=== PATIENT | female | born 1940 | race Caucasian/White ===

== ENCOUNTER 2020-03-23 16:08 | Observation (INO) | payer MEDICARE ==
[~2020-03-23] VITALS: Ht 172.7 cm; Wt 62.7 kg
[~2020-03-23 16:08] MED LIST: ASPIRIN325 MG PO; FISH OIL 500MG500 MG PO; KLOR-CON M2020 ME1 PO; LEVOTHYROXIN0.125 MG PO; METFORMIN500 MG PO; PRILOSEC40 M1 PO; TEKTURNA150 MG PO; TRAMADOL HCL50 MG PO; TRIAMTERENE/HCT1 CAP PO
[2020-03-23 16:11] VITALS: BP 119/41
[2020-03-23 17:58] LABS: BASO % 0.1 % (0.0-1.0); EOS # 0.1 10*3/uL (0.0-0.4); EOS % 0.6 % (1.0-4.0); HEMATOCRIT 36.5 % (37.0-47.0); LYMPH # 1.1 10*3/uL (1.3-4.4); LYMPH % 8.9 % (27.0-41.0); MEAN CELL VOLUME 91.7 fl (81.0-99.0); MEAN CORPUSCULAR HGB 30.4 pg (27.0-31.0); MEAN CORPUSCULAR HGB CONC 33.2 g/dl (33.0-37.0); MEAN PLATELET VOLUME 10.8 fl (9.6-12.3); MONO # 0.9 10*3/uL (0.1-1.0); MONO % 7.6 % (3.0-9.0); NEUT # 9.9 10*3/uL (2.3-7.9); NEUT % 81.8 % (47.0-73.0); PLATELET COUNT AUTOMATED 227 10*3/uL (130-400); RED BLOOD COUNT 3.98 10*6/uL (4.10-5.10); RED CELL DISTRI WIDTH 14.6 % (0-14.5); WHITE BLOOD COUNT 12.1 10*3/uL (4.8-10.8)
[2020-03-23 18:14] LABS: ALBUMIN 2.8 gm/dl (3.1-4.5); ALKALINE PHOSPHATASE 67 U/L (45-117); BUN 60 mg/dl (7-24); CHLORIDE 104 mmol/L (98-107); CREATININE 2.12 mg/dL (0.55-1.02); LIPASE 80 U/L (73-393); POTASSIUM 4.5 mmol/L (3.5-5.1); SGOT/AST 9 IU/L (3-35); SGPT/ALT 14 U/L (12-78); SODIUM 133 mmol/L (136-145); TOTAL PROTEIN 6.7 gm/dL (6.4-8.2)
[2020-03-23 18:20] LABS: TROPONIN I < 0.015 ng/ml (<0.045)
[2020-03-23 19:27] LABS: BACTERIA 1+; BILIRUBIN 1+ (NEGATIVE); BLOOD 2+ (NEGATIVE); CLARITY CLEAR (CLEAR); COLOR YELLOW (YELLOW); EPITHELIAL CELLS 16-20; GLUCOSE NEGATIVE (NEGATIVE); KETONE NEGATIVE (NEGATIVE); LEUKO ESTERASE NEGATIVE (NEGATIVE); NITRITE NEGATIVE (NEGATIVE); SPECIFIC GRAVITY 1.025 (1.005-1.030); UROBILINOGEN 0.2 E.U./dl (0.2-1.0)
--- NOTE | 2020-03-23 20:15 | NUR ---
SEVERAL ATTEMPTS TO SECURE AN IV HAVE BEEN MADE. NGA JAMA AND DR POST AWARE OF SITUATION. ATTEMPT TO GAIN ACCESS WILL BE MADE BY ULTRASOUND WHEN IS ABLE.
[2020-03-23 20:53] VITALS: BP 138/49
--- NOTE | 2020-03-23 22:44 | NUR ---
RIGHT SIDE SUBCLAVIAN LINE STARTED BY DR POST.
[2020-03-23 23:30] VITALS: BP 153/89
--- NOTE | 2020-03-23 23:30 | NUR ---
A 79, admitted to 5E, under the services of KASIE Arzola DO with a diagnosis of SACRAL DECUBITIS ULCER, CELLULITIS, CHANGE IN MENTAL STATUS. Chief complaint is WOUND TO COCCYX. Patient arrived via stretcher from ER. Monitor applied. Initial assessment completed. Vital signs taken and recorded. KASIE ARZOLA DO notified of admission to the unit. Orders received. See assessment for past medical history, medications and allergies. Patient and/or family oriented to unit. [facility] visitation policy reviewed. Clothing/patient valuable form completed. GENET JAMES
[2020-03-24] VITALS: BP 153/89
--- NOTE | 2020-03-24 00:31 | NUR ---
[facility] CALLED. REQUESTED RECORDS TO BE FAXED. WILL ATTEMPT TO FAX.
--- NOTE | 2020-03-24 00:45 | NUR ---
MADE AWARE OF PATIENT UNABLE TO TAKE PO FLAGYL. PT GIVEN ATIVAN IN ER AND IS ASLEEP. PT RESPONDS TO TACTILE/PAINFUL STIMULI WITH FACIAL GRIMACING, BUT DOES NOT OPEN EYES OR VERBALLY RESPOND. ALSO AWARE OF PATIENT'S DNR-CC STATUS WITH PAPER SENT FROM [facility] ON CHART. ALSO MADE AWARE THAT RECORDS FROM [facility] WERE REQUESTED, BUT FAX MAY NOT GO THROUGH DUE TO PHONE LINES BEING DOWN.
--- NOTE | 2020-03-24 00:53 | NUR ---
CALLED. CALLED TO CLARIFY IF ANY MORE TESTING NEEDS TO BE DONE. AIDES JUST RETURNED TO FLOOR FROM CT OF THE ABDOMEN/PELVIS WHEN NEW ORDER RECEIVED FOR CT HEAD. STATES HE WILL CLARIFY WITH .
[2020-03-24] MEDS ORDERED: ASPIRIN ADULT L81 M2 PO (00:57)
[2020-03-24] MEDS ORDERED: COGENTIN0.5 MG PO (00:58)
[2020-03-24] MEDS ORDERED: CIPROFLOXACIN500 M4 PO (00:59)
[2020-03-24] MEDS ORDERED: FISH OIL 1,201200 MG PO (01:00)
[2020-03-24] MEDS ORDERED: LEVOTHYROXINE112 MCG PO (01:01)
[2020-03-24] MEDS ORDERED: MIRTAZAPINE15 M2 PO (01:33)
[2020-03-24] MEDS ORDERED: RISPERIDONE2 M2 PO (01:34)
[2020-03-24] MEDS ORDERED: TRADJENTA5 M1 PO (01:35)
[2020-03-24] MEDS ORDERED: VITAMIN D31250 MC1 PO (01:37)
[2020-03-24] MEDS ORDERED: MAPAP EXTRA ST500 M1 PO (01:38)
[2020-03-24] MEDS ORDERED: VITAMIN C1000 M5 PO (01:46)
[2020-03-24] MEDS ORDERED: ZINC-220220 MG PO (01:46)
--- NOTE | 2020-03-24 01:46 | NUR ---
MED REC UP TO DATE PER [facility] PAPERWORK.
--- NOTE | 2020-03-24 03:54 | NUR ---
SPOKE TO & TO CLARIFY ORDER FOR ABGs FOR AMS. PT WAS GIVEN ATIVAN IN ER. PT ALSO HAS A HX OF PSYCHOSIS PER [facility]. PT IS ALSO A DNR-CC. PER , KEEP ABG ORDER FOR THIS MORNING AT 0530. RN ALSO NOTIFIED RESIDENTS OF DNR-CC PAPER ON CHART FROM [facility]. OK TO CHANGE THE ORDER IN THE COMPUTER FROM FULL TO DNR-CC.
[2020-03-24 05:32] LABS: URINE AMPHETAMINES < 1000 (1000ng/ml); URINE BARBITURATES < 200 (200ng/ml); URINE BENZODIAZEPINES < 200 (200ng/ml); URINE CANNABINOIDS (THC) < 50 (50ng/ml); URINE COCAINE < 300 (300ng/ml); URINE METHADONE < 300 (300ng/ml); URINE OPIATES < 300 (300ng/ml)
[2020-03-24 05:39] LABS: URINE PHENCYCLIDINE < 25 (25ng/ml)
[2020-03-24 05:52] LABS: ABG BASE EXCESS -5.3 mmol/L (-2.0-2.0); ARTERIAL BLOOD GAS PH 7.393 (7.35-7.45)
--- NOTE | 2020-03-24 06:39 | NUR ---
NOTIFIED OF CONSULT. WILL SEE PT TODAY.
[2020-03-24 07:21] LABS: EOS # 0.1 10*3/uL (0.0-0.4); EOS % 1.3 % (1.0-4.0); HEMATOCRIT 37.1 % (37.0-47.0); LYMPH # 0.8 10*3/uL (1.3-4.4); LYMPH % 10.3 % (27.0-41.0); MEAN CORPUSCULAR HGB CONC 31.8 g/dl (33.0-37.0); MONO # 0.7 10*3/uL (0.1-1.0); MONO % 9.1 % (3.0-9.0); NEUT % 77.9 % (47.0-73.0); PLATELET COUNT AUTOMATED 195 10*3/uL (130-400); RED BLOOD COUNT 3.81 10*6/uL (4.10-5.10); RED CELL DISTRI WIDTH 14.8 % (0-14.5); WHITE BLOOD COUNT 7.7 10*3/uL (4.8-10.8)
[2020-03-24 07:22] LABS: MEAN CELL VOLUME 97.4 fl (81.0-99.0)
[2020-03-24 07:38] LABS: ALBUMIN 2.4 gm/dl (3.1-4.5); CHLORIDE 110 mmol/L (98-107); POTASSIUM 3.8 mmol/L (3.5-5.1); SODIUM 135 mmol/L (136-145)
--- NOTE | 2020-03-24 07:43 | NUR ---
PHYSICAL THERAPY Screen and PT orders received, will follow. Thank you. Yaw Soria SPT Trisha Casarez PT
[2020-03-24 07:48] LABS: ALKALINE PHOSPHATASE 61 U/L (45-117); CREATININE 1.63 mg/dL (0.55-1.02); SGOT/AST 8 IU/L (3-35); SGPT/ALT 12 U/L (12-78); THYROID STIM HORMONE (HS) 0.232 uIU/ml (0.358-4.75)
[2020-03-24 07:51] LABS: ACETAMINOPHEN (TYLENOL) < 5.0 ug/ml (10-30); BUN 50 mg/dl (7-24)
--- NOTE | 2020-03-24 09:00 | NUR ---
Wine Cellar Worker in to talk to patient. Patient states lives at [facility] with other residents. There are no steps in the home. Physician: eno kaye Pharmacy: per [facility] health services: none Patient's level of ADLs: MODERATE ASSIST Patient has working utilities: all working DME: Follow-up physician's appointment after d/c: will be made by hospitalist nurse director upon discharge Does patient want to access PORTAL?: no Discharge plan patient is a resident of [facility] facility, she is being seen in the hospital by surgical consult. case management /geriatric social work professor will monitor treatment and talk with family regarding a short term long-term for treatment and physical therapy as needed, case management will follow. PATEL OLSON
--- NOTE | 2020-03-24 09:49 | NUR ---
PT MEDICATED WITH IV ATIVAN ORDERED FOR RESTLESSNESS PT PULLING AT IVS , TURNER CATHETER DR URBAN AT BEDSIDE
--- NOTE | 2020-03-24 10:00 | NUR ---
SPOKE WITH PT DTR MYRON . SHE STATES THAT HER MOM HAS A HISTORY OF DEMENTIA ,DEPRESSION & PSYCHOTIC EPISODES . STATES HER CONFUSION JUST RECENTLY GOT WORSE. HER MOM HAS BEEN IN SEVERAL DIFF FACILITIES OVER THE PAST FEW MONTHS . MOST RECENT [facility]OVE TO [facility] [place] . SHE STATES THAT HER MOMS WOUNDS RECENTLY DEVELOPED OVER PAST COUPLE WEEKS TO HER KNOWLEDGE SHE DID CLARIFY THAT HER MOM IS A DNR CC NOTIFIED DR URBAN , AND DR WILCOX
[2020-03-24 12:00] VITALS: BP 103/34
--- NOTE | 2020-03-24 15:26 | NUR ---
DR GARZA ANSWERING SERVICE NOTIFIED OF CONSULT
[2020-03-24 16:00] VITALS: BP 115/50
--- NOTE | 2020-03-24 16:26 | NUR ---
Occupational therapy order and nursing screen received. Will follow up with patient for completion of an OT evaluation. Thank you. Ann Valle, OTR/L
--- NOTE | 2020-03-24 16:50 | NUR ---
PT MEDICATED WITH ATIVAN FOR RESTLESSNESS. PT PULLING AT CENTRAL LINE, TURNER, HEART MONITOR / WILL MONITOR
--- NOTE | 2020-03-24 17:35 | NUR ---
PT RESTING IN BED/ EYES CLOSED, ATIVAN APPEARS EFFECTIVE. WILL MONITOR
--- NOTE | 2020-03-24 18:27 | NUR ---
palliative care consult/ claudia lew consult [facility] to [facility]
[2020-03-24 20:00] VITALS: BP 113/53
[2020-03-25] VITALS: BP 99/58
--- NOTE | 2020-03-25 04:45 | NUR ---
Upon discharge recommend patient to follow up for wound care in outpatient setting continue current wound care orders at discharging facility.
[2020-03-25 06:48] LABS: BASO % 0.2 % (0.0-1.0); CREATININE 1.13 mg/dL (0.55-1.02); EOS # 0.1 10*3/uL (0.0-0.4); EOS % 1.7 % (1.0-4.0); HEMATOCRIT 33.1 % (37.0-47.0); LYMPH # 0.9 10*3/uL (1.3-4.4); LYMPH % 10.8 % (27.0-41.0); MEAN CORPUSCULAR HGB 29.9 pg (27.0-31.0); MEAN PLATELET VOLUME 11.1 fl (9.6-12.3); MONO # 0.8 10*3/uL (0.1-1.0); MONO % 9.9 % (3.0-9.0); NEUT # 6.1 10*3/uL (2.3-7.9); NEUT % 76.4 % (47.0-73.0); PLATELET COUNT AUTOMATED 189 10*3/uL (130-400); POTASSIUM 3.1 mmol/L (3.5-5.1); RED BLOOD COUNT 3.54 10*6/uL (4.10-5.10); RED CELL DISTRI WIDTH 14.4 % (0-14.5); WHITE BLOOD COUNT 8.1 10*3/uL (4.8-10.8)
[2020-03-25 06:56] LABS: MEAN CELL VOLUME 93.5 fl (81.0-99.0)
--- NOTE | 2020-03-25 07:53 | NUR ---
MEDICAL RADIATION TECH FAXED UPDATES TO [facility].
--- NOTE | 2020-03-25 07:56 | NUR ---
Shift chart check completed.
--- NOTE | 2020-03-25 08:35 | NUR ---
daughter helena called, she is the patient POA. she would like to be the first emergency contact. her phone number is [phone]. daughter states that patients becomes very overwhelmed with any phone calls concerning jim and would like for us to not call him unless absolutely necessarry.
--- NOTE | 2020-03-25 09:13 | NUR ---
PHYSICAL THERAPY Chart reviewed attempted to see pt, nursing in with patient. Pt currently restless mildly agitated crying out. Spoke with nsg to defer therapy at this time, still adjusting medications. Will follow as appropriate pt also for possible debriedment of sacral ulcer. Trisha Casarez PT
--- NOTE | 2020-03-25 09:15 | NUR ---
OT NOTE Occupational therapy order received and chart reviewed. Spoke with nursing, per nursing patient is currently crying out/agitated, undergoing med adjustments, and is not appropriate for therapy at this time. Will check back at a later date for completion of OT eval as appropriate. Thank you. Ann Valel, OTR/L
--- NOTE | 2020-03-25 09:34 | NUR ---
TELEX OPERATOR LEFT MESSAGE FOR [facility] TO RETURN CALL.
--- NOTE | 2020-03-25 09:47 | NUR ---
PT VERY RESTLESS, STATES LEGS HURTING. PT SPEACH IS VERY MUMBLED. PT TOOK TWO OF AM MEDICATIONS, SPIT OTHERS OUT. PT ONLY TOOK TWO BITES OF OATMEAL AND A FEW SIPS OF WATER.
--- NOTE | 2020-03-25 10:38 | NUR ---
PT NO LONGER YELLING OUT, NO DISTRESS NOTED AT THIS TIME
--- NOTE | 2020-03-25 10:46 | NUR ---
DOCENT COORDINATOR [facility] PER KACI, PATIENT WOULD BE ABLE TO RETURN WITH HOSPICE SERVICES UNDER [place], THAT IS THE COMPANY THEY USE. HOWEVER, KAIC IS GOING TO LOOK INTO HOSPICE SERVICES WITH A WOUND VAC. DOCENT COORDINATOR TO FOLLOW.
[2020-03-25 12:00] VITALS: BP 110/50
--- NOTE | 2020-03-25 12:31 | NUR ---
PT YELLING OUT, SURGERY PHYSICIAN WAS IN TO SEE PATIENT AND LOOKED AT SACRAL WOUND, PT YELLED THAT IT HURT. GIVEN IV MORPHINE. WILL MONITOR FOR EFFECTIVENESS
--- NOTE | 2020-03-25 13:00 | NUR ---
PT SLEEPING, NO DISTRESS NOTED
--- NOTE | 2020-03-25 14:55 | NUR ---
PT RESTING/SLEEPING. NO DISTRESS NOTED.
[2020-03-25 16:00] VITALS: BP 118/48
--- NOTE | 2020-03-25 16:33 | NUR ---
[facility] here to see patient, spoke in length with daughter and family agrees to make patient hospice at this time. per [facility] patient would quailfy for GIP, inpatient hospice at this time. called hospitalist team, no answer at this time, to notify family request hospice care at this time. will call back hospitalist
--- NOTE | 2020-03-25 16:53 | NUR ---
spoke to patients daughter helena. she is going to go over to patients husbands house and discuss plans for hospice with him. she will call nurse back after she talks to him and decide to do inpatient hospice or [facility] with hospice. dr. gonzalez is aware family is deciding for inpatient hospice or discharge. will notify physician once family makes a decision. [facility] nurse aware of plans/family plan.
--- NOTE | 2020-03-25 17:44 | NUR ---
PT RESTING IN BED, NO DISTRESS NOTED AT THIS TIME
--- NOTE | 2020-03-25 18:04 | NUR ---
PATIENTS DAUGHTER MYRON CALLED, THEY WOULD LIKE TO MAKE PATIENT INPATIENT HOSPICE. DAUGHTER MYRON AND BHUPINDER WILL COME DOWN TO SEE PATIENT TOMORROW
--- NOTE | 2020-03-25 18:06 | NUR ---
DR. URBAN AWARE THAT FAMILY WILL COME SEE PATIENT TOMORROW. OKAY WITH REMAINING INPATIENT AND CHANGE TO INPATIENT HOSPICE T[facility]ORROW [facility]. PT FAMILY DOES NOT WANT WOUND DEBRIDMENT DONE TOMORROW.
--- NOTE | 2020-03-25 18:45 | NUR ---
IV LEFT AC INFILTRATED. DR. MEZA MADE AWARE
--- NOTE | 2020-03-25 18:46 | NUR ---
PT YELLING OUT "PLEASE HELP ME". PT STATES "THEY HURT". MORPHINE GIVEN. WILL MONITOR FOR EFFECTIVENESS
--- NOTE | 2020-03-25 19:40 | NUR ---
DR. BLANCA CALLED AT THIS TIME DUE TO PATIENT CALLING OUT CONTINUOUSLY AND APPEARING ANXIOUS WHEN ATTEMPTING TO REORIENT PATIENT TO PLACE AND TIME. ORDERS RECEIVED, SEE EMAR.
[2020-03-25 20:00] VITALS: BP 129/49
--- NOTE | 2020-03-25 20:05 | NUR ---
ONE TIME DOSE OF ATIVAN 0.5MG IV GIVEN AT THIS TIME FOR INCREASED RESTLESSNESS AND ANXIETY. PATIENT ALERT BUT CONFUSED, UNABLE TO REORIENT. TOLERATED WELL, WILL CONTINUE TO MONITOR.
--- NOTE | 2020-03-25 20:55 | NUR ---
PATIENT RESTING MORE CALMLY AT THIS TIME, NO LONGER CALLING OUT. AROUSES WHEN SPOKEN TO OR TOUCHED. REMAINS CONFUSED TO PLACE AND TIME AND UNABLE TO REORIENT. CALL LIGHT WITHIN REACH, WILL CONTINUE TO MONITOR.
[2020-03-26] VITALS: BP 121/54; BP 89/35
--- NOTE | 2020-03-26 | NUR ---
PATIENT RESTING IN BED AT THIS TIME WITH EYES CLOSED, NO SIGNS OR SYMPTOMS OF PAIN, ANXIETY OR DISTRESS NOTED AT THIS TIME. CALL LIGHT WITHIN REACH, WILL CONTINUE TO MONITOR.
--- NOTE | 2020-03-26 04:15 | NUR ---
PATIENT RESTING IN BED AT THIS TIME WITH EYES CLOSED, NO SIGNS OR SYMPTOMS OF DISTRESS NOTED. IV FLUIDS INFUSING INTO RIGHT SUBCLAVIAN IV WITHOUT INCIDENT. CALL LIGHT WITHIN REACH, WILL CONTINUE TO MONITOR.
[2020-03-26 06:13] LABS: BASO % 0.2 % (0.0-1.0); EOS # 0.1 10*3/uL (0.0-0.4); EOS % 2.1 % (1.0-4.0); LYMPH # 1.1 10*3/uL (1.3-4.4); LYMPH % 17.5 % (27.0-41.0); MEAN CORPUSCULAR HGB 29.9 pg (27.0-31.0); MEAN CORPUSCULAR HGB CONC 32.2 g/dl (33.0-37.0); MEAN PLATELET VOLUME 10.8 fl (9.6-12.3); MONO # 0.6 10*3/uL (0.1-1.0); MONO % 10.2 % (3.0-9.0); NEUT # 4.2 10*3/uL (2.3-7.9); NEUT % 68.5 % (47.0-73.0); PLATELET COUNT AUTOMATED 192 10*3/uL (130-400); RED BLOOD COUNT 3.44 10*6/uL (4.10-5.10); RED CELL DISTRI WIDTH 14.5 % (0-14.5); WHITE BLOOD COUNT 6.1 10*3/uL (4.8-10.8)
[2020-03-26 06:16] LABS: CHLORIDE 109 mmol/L (98-107); CREATININE 0.97 mg/dL (0.55-1.02); POTASSIUM 3.5 mmol/L (3.5-5.1); SODIUM 139 mmol/L (136-145)
[2020-03-26 06:30] LABS: BUN 19 mg/dl (7-24)
--- NOTE | 2020-03-26 07:07 | NUR ---
PRN MORPHINE GIVEN IV AT THIS TIME FOR INCREASE IN AGGITATION AND PAIN, PATIENT CALLING OUT "PATEL, PATEL, HELP ME MY BACK HURTS AND I NEED YOU." ATTEMPTED TO REORIENT PATIENT TO PLACE AND TIME WITHOUT SUCCESS.
[2020-03-26 08:00] VITALS: BP 127/50
--- NOTE | 2020-03-26 08:18 | NUR ---
PT MEDICATED WITH MORPHINE . DOSE BEFORE NOT EFECTIVE. PT CONTINUES TO YELL OUT , MOANING WILL MONITOR
--- NOTE | 2020-03-26 08:27 | NUR ---
PT SOUND ASLEEP , SNORING . RESTING QUIELTY. MORPHINE APPEARS TO BE EFFECTIVE. WILL MONITOR
--- NOTE | 2020-03-26 12:28 | NUR ---
NEREYDA REACHED OUT TO [facility]. LINUX KERNEL ENGINEER SPOKE WITH PRESTON GÓMEZ CLEANING STAFF SUPERVISOR. NEREYDA EXPLAINED PATIENTS FAMILY IS WANTING TO ADMIT GIP. PER RICO SHE WILL SPEAK WITH HER RN WHO IS ON AN EMERGENCY AND WILL CALL BACK WITH A TIME. NEREYDA EXPLAINED IF THIS LINUX KERNEL ENGINEER IS UNABLE TO ANSWER TO CONTACT THE FLOOR. SHE UNDERSTOOD.
--- NOTE | 2020-03-26 12:51 | NUR ---
PT MEDICATED WITH MORPHINE FOR GEN PAIN . PT YELLING OUT, MOANING DTR AND AT BEDSIDE WILL MONITOR
--- NOTE | 2020-03-26 13:47 | NUR ---
FOOT DOCTOR REACHED BACK OUT TO [facility]. SHE STATED THE RN IS PLANNING ON MEETING WITH FAMILY HERE BETWEEN 3:30 AND 4PM. FOOT DOCTOR CALLED TO SPEAK WITH PRESTON MCCLAIN, HOWEVER SHE IS AT LUNCH. FOOT DOCTOR SPOKE WITH QUYNH WHO STATED SHE WOULD INFORM RN.
[2020-03-26 16:00] VITALS: BP 107/51
--- NOTE | 2020-03-26 16:05 | NUR ---
HOSPICE NURSE HERE TO SEE PT/ PT DTR AND KATE AT BEDSIDE
--- NOTE | 2020-03-26 16:59 | NUR ---
PT MEDICATED WITH IV MORPHINE FOR PT YELLING OUT, MAONING. PT DTR AND AT BEDSIDE WILL MONITOR
--- NOTE | 2020-03-26 17:30 | NUR ---
PT RESTING IN BED. EYES CLOSED. MORPHINE APPEARS TO BE EFFECTIVE. WILL MONITOR
--- NOTE | 2020-03-26 18:04 | NUR ---
Discharge instructions reviewed with patient/family. Patient receptive and verbalizes understanding. Follow-up care arranged. Written instructions given to patient/family. SYLVESTER FIGUEREDO
== END 2020-03-26 18:10 | disposition hospice, home (50) ==
LOC: ED 16:08 → EDHOLD 20:34 → 5E 20:34 → EDHOLD 20:53 → 5E 22:03
PROVIDERS: Hospitalist; Physician Assistant; Student in an Organized Health Care Education/Training Program; ADMIT Internal Medicine
DX: Z03.818 Encounter for observation for suspected exposure to other biological agents ruled out (principal); L89.159 Pressure ulcer of sacral region, unspecified stage; R41.82 Altered mental status, unspecified; D72.829 Elevated white blood cell count, unspecified; E87.1 Hypo-osmolality and hyponatremia; E44.0 Moderate protein-calorie malnutrition; E54 Ascorbic acid deficiency; E11.65 Type 2 diabetes mellitus with hyperglycemia; E55.9 Vitamin D deficiency, unspecified; I10 Essential (primary) hypertension; K21.9 Gastro-esophageal reflux disease without esophagitis; E87.2 Acidosis; R00.1 Bradycardia, unspecified; D64.9 Anemia, unspecified; N17.0 Acute kidney failure with tubular necrosis; E43 Unspecified severe protein-calorie malnutrition; G93.41 Metabolic encephalopathy

== ENCOUNTER 2020-03-26 18:10 | Inpatient (IN) | payer OTHER ==
[~2020-03-26] VITALS: Ht 170.2 cm; Wt 62.6 kg
[~2020-03-26 18:10] MED LIST changes: +ASPIRIN ADULT L81 M2 PO; +CIPROFLOXACIN500 M4 PO; +COGENTIN0.5 MG PO; +FISH OIL 1,201200 MG PO; +LEVOTHYROXINE112 MCG PO; +MAPAP EXTRA ST500 M1 PO; +MIRTAZAPINE15 M2 PO; +RISPERIDONE2 M2 PO; +TRADJENTA5 M1 PO; +VITAMIN C1000 M5 PO; +VITAMIN D31250 MC1 PO; +ZINC-220220 MG PO
--- NOTE | 2020-03-26 18:30 | NUR ---
Time: 1829 A 79 year old FEMALE admitted to under [facility] of [facility] SYLVESTER FIGUEREDO
--- NOTE | 2020-03-26 19:50 | NUR ---
MEDICATED WITH PRN MORPHINE FOR C/O PAIN EVERYTHING. PATIENT SCREAMING OUT "PLEASE HELP ME PLEASE". WILL MONITOR
--- NOTE | 2020-03-26 19:51 | NUR ---
MEDICATED WITH PRN ATIVAN FOR ANXIOUSNESS. WILL MONITOR
[2020-03-26 20:00] VITALS: BP 137/55
--- NOTE | 2020-03-26 20:45 | NUR ---
MORPHINE AND ATIVAN APPEAR TO BE EFFECTIVE. PATIENT IS RESTING WITH REGULAR RESPIRATIONS AND EYES CLOSED. BED IN LOWEST POSITION, CALL LIGHT IN REACH
--- NOTE | 2020-03-26 23:17 | NUR ---
24 HR chart check completed.
[2020-03-27] VITALS: BP 115/40
--- NOTE | 2020-03-27 01:57 | NUR ---
PATIENT RESTING IN BED WITH EYES CLOSED. RESPIRATIONS REMAIN EASY AND REGULAR. NO S/S OF DISTRESS AT THIS TIME. BED IN LOWEST POSITION, CALL LIGHT IN REACH
--- NOTE | 2020-03-27 03:56 | NUR ---
PATIENT REMAINS RESTING WITH NO S/S OF DISTRESS. BED IN LOWEST POSITION, CALL LIGHT IN REACH
--- NOTE | 2020-03-27 06:18 | NUR ---
MEDICATED WITH PRN ATIVAN FOR ANXIOUSNESS. PATIENT YELLING OUT "HELP ME TAKE ME!" WILL MONITOR
--- NOTE | 2020-03-27 06:19 | NUR ---
MEDICATED WITH PRN MORPHINE FOR YELLING OUT "HELP ME PLEASE" WILL MONITOR
--- NOTE | 2020-03-27 06:45 | NUR ---
DR PAGAN AWARE OF PATIENT SCREAMING AND EXTREMELY AGITATED. ORDER FOR 2MG IV MORPHINE NOW
--- NOTE | 2020-03-27 06:55 | NUR ---
PATIENT MEDICATED WITH ONE TIME IV MORPHINE FOR SCREAMING OUT FOR HELP AND PAIN. WILL MONITOR
[2020-03-27 08:00] VITALS: BP 138/63
--- NOTE | 2020-03-27 10:15 | NUR ---
MORPHINE AND ATIVAN ADMINISTERED AT THIS TIME DUE TO PATIENT YELLING OUT, MOANING, AND EXHIBITING S/S OF PAIN. INDWELLING CATHETER REMOVED AT THIS TIME WITH 200CC OF STRAW COLORED URINE IN COLLECTION BAG, PATIENT TOLERATED WELL. MULITILUMEN IJ CATHETER REMOVED A THIS TIME, NO BLEEDING NOTED AT SITE, PATIENT TOLERATED WELL.
--- NOTE | 2020-03-27 11:02 | NUR ---
MORPHINE AND ATIVAN EFFECTIVE, PATIENT RESTING QUIETLY AT THIS TIME, NO FURTHER SIGNS OR SYMPTOMS OF PAIN.
[2020-03-27 12:00] VITALS: BP 140/86
[2020-03-27 16:00] VITALS: BP 108/24
--- NOTE | 2020-03-27 18:58 | NUR ---
MEDICATED WITH PRN SL MORPHINE FOR S/S DISCOMFORT (TAUT FACIAL EXPRESSION)
[2020-03-27 20:00] VITALS: BP 93/39
[2020-03-28] VITALS: BP 97/36
--- NOTE | 2020-03-28 02:06 | NUR ---
PATIENT MEDICATED WITH MORPHINE D/T YELLING OUT WHILE BEING BATHED. WILL CONINUE TO MONITOR. CALL LIGHT IN REACH.
--- NOTE | 2020-03-28 07:50 | NUR ---
MEDICATED WITH PRN SL MORPHINE AND ATIVAN FOR FACIAL GRIMACE WITH POSITIONING OF HEELS AND PHYSICAL ASSESSMENT.
[2020-03-28 08:00] VITALS: BP 107/41
--- NOTE | 2020-03-28 08:30 | NUR ---
PATIENT APPEARS COMFORTABLE, NO S/S PAIN OR ANXIETY. PRN SL MORPHINE AND ATIVAN EFFECTIVE.
--- NOTE | 2020-03-28 08:45 | NUR ---
OT NOTE Occupational therapy order received and chart reviewed. Patient has been discharged to [facility] hospice. No further OT indicated at this time. Thank you for the referral. Ann Valle, OTR/L
--- NOTE | 2020-03-28 08:49 | NUR ---
PHYSICAL THERAPY Reviewed updated medical notes in chart pt has been admitted to [facility] hospice, will dicontinue PT orders at this time, thank you. Trisha Csaarez PT
--- NOTE | 2020-03-28 09:17 | NUR ---
Julianna from [facility] requested clinicals to be faxed [phone]. Faxed clinicals for review.
--- NOTE | 2020-03-28 10:44 | NUR ---
Nutritional Support Services Note: Pt under hospice care. Regular diet as ordered. Pt is not eating at this time. Will follow if needed. Encourage po intake as able. Dari Boswell Rdn Ld
--- NOTE | 2020-03-28 11:21 | NUR ---
INFORMATION SUPPORT PROJECT MANAGER SPOKE WITH KARLENE. IF PATIENT WERE TO RETURN TO [facility] SHE WOULD NEED TO BE TRANSITION TO [facility] THE FACILITY IS LIMITING THE ACCESS TO THE BUILDING DUE TO THE PANDEMIC. PER KARY, SHE SPOKE WITH THE PATIENTS DAUGHTER MYRON AND MYRON UNDERSTOOD THIS. INFORMATION SUPPORT PROJECT MANAGER TO FOLLOW.
--- NOTE | 2020-03-28 11:48 | NUR ---
[facility] MANAGER FURNITURE IN TO SEE PATIENT EARLIER THIS MORNING. FAMILY IS CURRENTLY AT PATIENT'S BEDSIDE VISITING.
[2020-03-28 12:00] VITALS: BP 111/46
--- NOTE | 2020-03-28 15:28 | NUR ---
MEDICATED WITH PRN SL MORPHINE AND ATIVAN FOR SATISFACTORY PAIN CONTROL AT THIS TIME.
[2020-03-28 16:00] VITALS: BP 108/50
--- NOTE | 2020-03-28 16:20 | NUR ---
PRN SL MORPHINE AND ATIVAN EFFECTIVE FOR PAIN CONTROL, PATIENT RESTING QUIETLY, NO S/S PAIN.
--- NOTE | 2020-03-28 16:58 | NUR ---
PRN PO TYLENOL AND FLEXERIL EFFECTIVE, PER PATIENT.
--- NOTE | 2020-03-28 17:57 | NUR ---
HOSPICE NURSE IN TO SEE PATIENT RE: PLAN OF CARE, RECOMMENDS INCREASE IN FREQUENCY OF SL MORPHINE TO Q 2HR. WILL NOTIFY ATTENDING PHYSICIAN.
--- NOTE | 2020-03-28 18:59 | NUR ---
MEDICATED WITH SL MORPHINE FOR S/S PAIN/FACIAL GRIMACING
[2020-03-28 20:00] VITALS: BP 117/36
--- NOTE | 2020-03-28 21:00 | NUR ---
DAUGHTE HERE TO STAY THE NIGHT. PLUG GROWER AND SECURITY AWARE
--- NOTE | 2020-03-28 21:07 | NUR ---
[facility]ED [facility] IN REGARD TO TABLET MEDICATION, REQUESTING CHANGE TO SBL D/T PATIENT UNRESPONVIENESS/UNABLE TO FOLLOW COMMANDS. STATED SHE WILL CALL DOCTOR AND GIVE CALL BACK
--- NOTE | 2020-03-28 21:26 | NUR ---
ROSY WITH [facility] STATED THEIR DOCTOR STATED OK TO CHANGE MED TO SBL.
--- NOTE | 2020-03-28 21:33 | NUR ---
PATIENT MEDICATED WITH MORPHINE FOR NOTED AGITAION WHILE REPOSITIONING. WILL MONITOR
--- NOTE | 2020-03-28 22:33 | NUR ---
MORPHINE APPEARS EFFECTIVE. RESTING QUIETLY, NO DISTRESS NOTED
[2020-03-29] VITALS: BP 106/50
--- NOTE | 2020-03-29 00:16 | NUR ---
CALLED ASKED FOR UPDATE. INFORMED SCAN ID NOT BACK, STATED WAITING TO CALL DANNY WHEN IT DOES. DELMA STATES THAT IS OK AND SHE IS STARTING PROCESS OF TRANSFER.
--- NOTE | 2020-03-29 01:22 | NUR ---
PATIENT MEDICATED WITH MORPHINE FOR NOTED AGITATION AFTER REPOSITIONING. WILL MONITOR
[2020-03-29 08:00] VITALS: BP 104/40
--- NOTE | 2020-03-29 08:13 | NUR ---
PT DAUGHTER AT BEDSIDE REQUESTING MORPHINE FOR FACIAL GRIMACING. ASSESSMENT COMPLETE, SEE EMAR FOR ADMINISTRATION DETAILS.
--- NOTE | 2020-03-29 09:00 | NUR ---
PT RESTING QUIETLY IN BED, NO MORE FACIAL GRIMACING OBSERVED. RESPIRATIONS 6 EASY AND NONLABORED, 2-3 SECOND PERIODS OF APNEA OBSERVED. FAMILY REMAINS AT BEDSIDE, CALL LIGHT WITHIN REACH, SIDE RAILS UPX4 (PER FAMILY REQUEST), BED IN LOWEST POSITION.
--- NOTE | 2020-03-29 10:23 | NUR ---
PT IS ON HOSPICE AND ACTIVELY DYING, FAMILY REFUSING WOUND CARE AT THIS TIME. SAFETY MEASURES REMAIN IN PLACE.
--- NOTE | 2020-03-29 11:20 | NUR ---
JAMIE DAY CARE SUPERVISOR WITH [facility] IN TO SEE PT, NO NEW ORDERS. PT RESTING QUILETY WITH FAMILIY AT BEDSIDE, RESPIRATIONS EASY AND NONLABORED AT 6.
--- NOTE | 2020-03-29 11:48 | NUR ---
UPDATED [facility] WITH PT STATUS.
[2020-03-29 12:00] VITALS: BP 86/34
--- NOTE | 2020-03-29 14:39 | NUR ---
MORPHINE GIVEN PER FAMILY REQUEST. PT RESTING COMFORTABLY AT THIS TIME. RESPERATIONS 12 BPM. WILL MONITOR. PULLED UP IN BED WITH MINIMAL FACIAL GRIMICING. CALL LIGHT IN REACH. FAMILY AT BEDSIDE.
[2020-03-29 16:00] VITALS: BP 67/18
--- NOTE | 2020-03-29 17:16 | NUR ---
PT RESTING COMFORTABLY, RESPIRATIONS EASY AND NONLABORED ON ROOM AIR. FAMILY REMAINS AT BEDSIDE.
--- NOTE | 2020-03-29 18:18 | NUR ---
PT FAMILY REQUESTING MORPHINE AT THIS TIME, SEE EMAR FOR ADMINISTRATION.
--- NOTE | 2020-03-29 18:47 | NUR ---
Shift chart check completed.
--- NOTE | 2020-03-29 18:49 | NUR ---
PT RESTING COMFORTABLY, RESPIRATIONS 10, 5 SEC PERIODS OF APNEIC PERIODS OBSERVED.
[2020-03-29 20:00] VITALS: BP 102/41
--- NOTE | 2020-03-29 20:54 | NUR ---
PATIENT MEDICATED WITH MORPHINE FOR NOTED PAIN WITH WITH MOVEMENT. WILL MONITOR
--- NOTE | 2020-03-29 21:01 | NUR ---
INFORMED THAT PATIENT HAS RATTLE/MOIST BREATHING. STATED OK TO ATROPINE ORDER AND TO MCKAYLA HOPSIBOY KNOW ITLL BE ORDERED.
--- NOTE | 2020-03-29 21:04 | NUR ---
CQLL SENT TO [facility], MESSAGE SENT
--- NOTE | 2020-03-29 21:09 | NUR ---
[facility] NURSE CALLED BACK, STATED STROPINE ORDER WAS OK.
--- NOTE | 2020-03-29 21:54 | NUR ---
MORPHINE APPEARS EFFECTIVE. RESTING COMFORTABLY
--- NOTE | 2020-03-29 21:57 | NUR ---
PATIENT MEDICATED WITH ATROPINE FOR MOIST RESP. WILL MONITOR
--- NOTE | 2020-03-29 23:40 | NUR ---
SPO2 80-84% ON ROOM AIR, PATIENT VERY MOIST RESP AT THIS TIME. ATROPINE INCREASE TO 2HR WILL BE GIVEN AND SUPPLEMENTAL O2 GIVEN AT 5L NC FOR COMFROT. SPO2 90-93% ON 5L.
--- NOTE | 2020-03-29 23:43 | NUR ---
ATROPINE CHANGED TO Q2HR PER HOSPICE VERBAL RECOMMENDATION.
--- NOTE | 2020-03-29 23:50 | NUR ---
PATIENT MEDICATED WITH MOIST RESP. WILL MONITOR
--- NOTE | 2020-03-29 23:50 | NUR ---
PATIENT MEDICATEDW WITH ATIVAN FOR NOTED AGITATION AND NOTED INCREASE LABOTED BREATHING. WILL MONITOR
[2020-03-30] VITALS: BP 117/42
--- NOTE | 2020-03-30 00:35 | NUR ---
MORPHINE EFFECTIVE. PATIENT RESTING COMFORTABLY
--- NOTE | 2020-03-30 00:50 | NUR ---
ATIVAN EFFECTIVE. NO NOTED AGITATION
--- NOTE | 2020-03-30 01:38 | NUR ---
PATIENT NOTEDC PAIN DURING MIREYA-CARE, AND INCREASED SECRETION. PATIENT MEDCIATED WITH MORPHINE AND ATROPINE. WILL MONITOR
--- NOTE | 2020-03-30 02:38 | NUR ---
MORPHINE AND ATROPINE APPEAR EFFECTIVE. PATIENT RESTIN COMFORTABLY
--- NOTE | 2020-03-30 04:01 | NUR ---
PATIENT APPEARS AGITATED WITH LABORED BREATHING AND MOIST RESP. PATIENT MEDICATED WITH MORPHINE/ATROPINE/ATIVAN. WILL MONITOR
--- NOTE | 2020-03-30 05:01 | NUR ---
ATROPINE AND MORPHINE APPEAR EFFECTIVE. PATIENT RESTING QUIETLY
--- NOTE | 2020-03-30 06:23 | NUR ---
PATIENT MEDICATED WITH MORPHINE AND ATROPINE FOR LABORED RESP AND MOIST RESP. WILL MONITOR
--- NOTE | 2020-03-30 15:06 | NUR ---
RESPERS DECREASING TO 8 PER HOUR. PAIENT IS MEDICATED FOR COMFORT. FAMILY AT BEDSIDE. HOSPICE AWARE.
[2020-03-30 16:00] VITALS: BP 64/34
--- NOTE | 2020-03-30 19:38 | NUR ---
HERE. PATIENT REMAINS UNRESPONSIVE WITH VERY SLOW RESP. 6-8BPM. O2 5L VIA NC IN USE. NO MOAINING OER SIGNS OF PAIN NOTED.
[2020-03-30 20:00] VITALS: BP 74/33
--- NOTE | 2020-03-30 20:48 | NUR ---
UNRESPONSIVE AND HAVING MOIST RESP. ATROPINE GIVEN PER ORDER FOR MOIST RESP. DAUGHTER AT BEDSIDE.
[2020-03-30 20:55] VITALS: BP 62/32
--- NOTE | 2020-03-30 21:02 | NUR ---
MORPHINE GIVEN PER ORDER FOR DISCOMFORT PER FAMILY REQUEST. SEE MAR.
--- NOTE | 2020-03-30 21:45 | NUR ---
ATROPINE EFFECTIVE FOR MOIST RESP.
--- NOTE | 2020-03-30 22:00 | NUR ---
MORPHINE EFFECTIVE PT. RESTING EASY.
--- NOTE | 2020-03-30 23:58 | NUR ---
RESTING EASY AT THIS TIME. DAUGHTER AT BEDSIDE.
[2020-03-31] VITALS: BP 81/43
--- NOTE | 2020-03-31 00:53 | NUR ---
MOIST RESP. NOTED. ATROPINE GIVEN PER ORDER FOR THIS. SEE MAR. DAUGHTER AT BEDSIDE.
--- NOTE | 2020-03-31 03:06 | NUR ---
DAUGHTER CALLED OUT AND WANTED MORPHINE AND ATROPINE GIVEN FELT HER MOTHER WAS HAVING SOME SOB. MORPHINE GIVEN PER ORDER FOR DISCOMFORT.
--- NOTE | 2020-03-31 03:08 | NUR ---
ATROPINE GIVEN FOR MOIST RESP. PER ORDER.
[2020-03-31 04:00] VITALS: BP 77/39
--- NOTE | 2020-03-31 04:05 | NUR ---
RESP. STILL MOIST BUT NOT MUCH ATROPINE HELPING. MORPHINE EFFECTIVE PATIENT BREATHING EASIER. DAUGHTER REMAINS AT BEDSIDE.
--- NOTE | 2020-03-31 04:13 | NUR ---
24 HR chart check completed.
--- NOTE | 2020-03-31 04:38 | NUR ---
FLEET DISPATCH MANAGER, DEBBIE HERE AND EXAMINED PATIENT AND SPOKE WITH DAUGHTER.
--- NOTE | 2020-03-31 05:30 | NUR ---
RESTING EASIER. RESP. NOT MOIST. RESP RATE 10 BPM. DAUGHTER AT BEDSIDE.
--- NOTE | 2020-03-31 07:40 | NUR ---
TURNED AND REPOSITIONED ONTO RIGHT SIDE. UNRESPONSIVE TO NAME OR ANY PAINFUL TACTILE STIMULUS. DRESSING TO COCCYX INTACT WITH A VERY STRONG ODOR NOTED. BRIEF ON DRY AND CHANGED. ORAL CARE PROVIDED. HEEL PROTECTORS ON TO BOTH FEET. PULSE OX 94% ON 5L NASAL CANNULA. BP 78/34
[2020-03-31 08:00] VITALS: BP 78/34
[2020-03-31 12:00] VITALS: BP 79/27
--- NOTE | 2020-03-31 12:45 | NUR ---
MEDICATED WITH ORAL MORPHINE PER FAMILY REQUEST. REMAINS UNRESPONSIVE. BP 78/27
[2020-03-31 16:00] VITALS: BP 90/45
--- NOTE | 2020-03-31 17:38 | NUR ---
MEDICATED WITH ORAL MORPHINE FOR COMFORT.
--- NOTE | 2020-03-31 19:40 | NUR ---
UNRESPONSIVE TO VOICE OR TOUCH. RESP. SHALLOW 14 BPM WITH SHORT PERIODS OF APNEA. O2 5L VIA NC IN USE. MOUTH CARE DONE. PATIENT REPOSITIONED FOR COMFORT, HEEL PROTECTORS ON. AT BEDSIDE. MORPHINE WAS EFFECTIVE. PT. APPEARS COMFORTABLE.
[2020-03-31 20:00] VITALS: BP 99/39
--- NOTE | 2020-03-31 21:30 | NUR ---
PEANUT CLEANER HERE AND EXAMINED PATIENT AND SPOKE WITH FAMILY. PATIENT EYES ARE NOW TURNED IN DIFFERENT DIRECTIONS OF SITE. FEET COOL TO TOUCH BUT PULSE OX AND BODY CORE ARE WARM. RESP. SHALLOW WITH SMALL PERIODS OF APNEA 14-16 BPM. HALDOL HELD PATIENT UNRESPONSIVE APPEARS COMFORTABLE. DAUGHTER AT BEDSIDE.
--- NOTE | 2020-03-31 23:12 | NUR ---
PATIENT STILL UNRESPONSIVE RESP. SHALLOW WITH PERIODS APNEA. DAUGHTER AT BEDSIDE.
[2020-04-01] VITALS: BP 59/38
--- NOTE | 2020-04-01 00:05 | NUR ---
MOUTH CARE GIVEN PATIENT WAS TURNED. BP 52 OVER PALP. DURING MOUTH CARE PATIENT DID PULL MOUTH CLOSED AND OPENED AGAIN. HR 85 PULSE OX 95% ON 5L O2. DAUGHTER REMAINS AT BEDSIDE.
--- NOTE | 2020-04-01 00:25 | NUR ---
DR. BLANCA ON UNIT AND WAS NOTIFIED OF HOW PATIENT WAS DOING. NO ORDERS.
--- NOTE | 2020-04-01 01:25 | NUR ---
REMAINS SAME, UNRESPONSIVE WITH SHALLOW RESP. DAUGHTER AT BEDSIDE.
--- NOTE | 2020-04-01 01:39 | NUR ---
24 HR chart check completed.
--- NOTE | 2020-04-01 02:19 | NUR ---
ASKED DAUGHTER IF SHE WOULD LIKE HER MOTHER TO BE BATHED AND SHE SAID YES. BATH GIVEN AND BEDLINENS CHANGED. MOUTH CARE AND CHAP STICK APPLIED TO LIPS. PT. TOLERATING WELL. PT. REMAINS UNRESPONSIVE AND RESP SHALLOW WITH PERIODS OF APNEA LASTING 5 SEC.
--- NOTE | 2020-04-01 03:21 | NUR ---
STILL UNRESPONSIVE AND RESP ARE 15 BPM SOME SHALLOW SOME DEEPER. DAUGHTER AT BEDSIDE.
--- NOTE | 2020-04-01 04:30 | NUR ---
REMAINS SAME. DAUGHTER AT BEDSIDE.
--- NOTE | 2020-04-01 05:02 | NUR ---
DAUGHTER OUT TO DESK STATED "SHE SEEMS LIKE SHE HAVE MORE AGITATION LIKE HER BREATHING HAS BECOME HEAVIER" DAUGHTER REQUESTED MORPHINE, MORPHINE GIVEN PER ORDER PER FAMILY REQUEST ALSO RESP. SEEMS MORE MOIST ATROPINE GIVEN FOR THIS PER ORDER. SEE MAR.
--- NOTE | 2020-04-01 05:58 | NUR ---
DAUGHTER CALLED RN IN ROOM AND PATIENT HAS . VERIFIED WITH 2ND RN. NO BREATH OR HEART RATE. DAUGHTER CALLED HER FATHER TO COME TO HOSPITAL.
--- NOTE | 2020-04-01 06:01 | NUR ---
CALLED DR. BLANCA AND NOTIFIED HIM OF AND HE STATED DR. ROBERTS WILL BE SIGNING OFF.
--- NOTE | 2020-04-01 06:03 | NUR ---
CALLED NURSING AIR CONDITIONING MECHANIC [employer] AND NOTIFIED HER OF .
--- NOTE | 2020-04-01 06:20 | NUR ---
CALLED [facility] AND NOTIFIED THEM AND INFORMATION GIVEN TO THEM. PATIENT IS NOT TO BE RELEASED TO HOME UNTIL THEY HAVE CLEARED HER. REFERRENCE NUMBER [id number]. FAMILY REQUESTING [facility].
--- NOTE | 2020-04-01 06:43 | NUR ---
CALLED NURSING WILDLIFE ECOLOGY PROFESSOR AND NOTIFIED HER OF HOME AND THAT [facility] IS NOT RELEASING PATIENT TO HOME AT THIS TIME. PATIENT IS GOING THROUGH THE DONOR PROCESS.
--- NOTE | 2020-04-01 07:14 | NUR ---
SPOKE WITH KACIE FROM [facility] AND PATIENT IS RELEASED FROM [facility]ATION PROCESS AND IS ABLE TO GO TO HOME.
--- NOTE | 2020-04-01 07:25 | NUR ---
ZINC PLATING MACHINE OPERATOR NOTIFIED [facility] OF THE PATIENT PASSING.
--- NOTE | 2020-04-01 07:44 | NUR ---
Lse Nisadilcia signed record of /Authorization for Release of Remains.
--- NOTE | 2020-04-01 07:45 | NUR ---
FAMILY LEFT PATIENT ROOM, AWARE HOME WILL BE PICKING PATIENT UP SOON. BELONGINGS EXCEPT FOR DENTURES SENT HOME WITH FAMILY.
--- NOTE | 2020-04-01 07:55 | NUR ---
spoke with Dr. Howe who is the resident that Dr. Chapman is with and They are aware of and will have Dr. Chapman take care of needed paper work. Notified daylight RN.
--- NOTE | 2020-04-01 08:19 | NUR ---
hospice nurse was unable to get ahold of home, [facility]. notified security/floor service of need to move patient to [facility] until home is able to brick picker patient.
--- NOTE | 2020-04-01 09:05 | NUR ---
[facility] HERE TO [place] PATIENT TO TRANSPORT TO [facility]. SENT TO HOME WITH DENTURES.
== END 2020-04-01 05:58 | disposition expired | DRG 592 ==
LOC: 5E 18:10
PROVIDERS: ADMIT Internal Medicine
DX: L89.150 Pressure ulcer of sacral region, unstageable (principal); E43 Unspecified severe protein-calorie malnutrition; G93.41 Metabolic encephalopathy; N17.0 Acute kidney failure with tubular necrosis; L03.317 Cellulitis of buttock; E87.1 Hypo-osmolality and hyponatremia; E87.2 Acidosis; Z51.5 Encounter for palliative care; Z66 Do not resuscitate; D64.9 Anemia, unspecified; K21.9 Gastro-esophageal reflux disease without esophagitis; I10 Essential (primary) hypertension; E11.65 Type 2 diabetes mellitus with hyperglycemia; E54 Ascorbic acid deficiency; E55.9 Vitamin D deficiency, unspecified; R00.1 Bradycardia, unspecified; Z86.73 Personal history of transient ischemic attack (TIA), and cerebral infarction without residual deficits; Z88.5 Allergy status to narcotic agent; Z79.82 Long term (current) use of aspirin; Z79.899 Other long term (current) drug therapy; Z79.84 Long term (current) use of oral hypoglycemic drugs; Z68.20 Body mass index [BMI] 20.0-20.9, adult; Z03.818 Encounter for observation for suspected exposure to other biological agents ruled out